=== PATIENT | male | born 1980 | race Caucasian/White ===

== ENCOUNTER 2016-10-31 15:05 | Emergency (ER) | payer MEDICAID ==
[~2016-10-31] VITALS: Ht 177.8 cm; Wt 70.3 kg
[2016-10-31 15:35] VITALS: BP 148/76
== END 2016-10-31 16:14 | disposition home or self-care (01) ==
LOC: ER 15:12
DX: M54.12 Radiculopathy, cervical region (principal); M62.838 Other muscle spasm
CPT/HCPCS: A4606; Z7610

== ENCOUNTER 2018-08-03 14:29 | Emergency (ER) | payer BC, MEDICAID ==
[~2018-08-03] VITALS: Ht 177.8 cm; Wt 68.0 kg
[2018-08-03 14:29] VITALS: BP 134/75
[2018-08-03] MEDS ORDERED: KETOROLAC TROMETHAMINE INJ 60 MG/2 ML VIAL IM ONE ×2 (15:00→15:05)
[2018-08-03] MEDS ORDERED: predniSONE 20 MG TABLET PO ONE (15:00)
[2018-08-03] MEDS ORDERED: CYCLOBENZAPRINE 10 MG TABLET PO ONE (15:00)
[2018-08-03] MEDS ORDERED: CYCLOBENZAPRINE 10 MG TABLET ONE (15:05)
[2018-08-03] MEDS ORDERED: predniSONE 20 MG TABLET ONE (15:06)
[2018-08-03] MEDS ORDERED: ONDANSETRON 4 MG TAB.RAPDIS ONE (15:13)
[2018-08-03 15:21] LABS: APPEARANCE,URINE Clear (CLEAR); BILIRUBIN,URINE Negative (NEGATIVE); BLOOD, URINE Negative Ery/uL (NEGATIVE); COLOR,URINE Yellow (YELLOW); KETONES,URINE Negative (NEGATIVE); LEUKOCYTE ESTERASE ,URINE Negative (NEGATIVE); NITRITE, URINE Negative (NEGATIVE); PROTEIN,URINE Negative (NEGATIVE); UGLUCOSE Negative (NEGATIVE); UROBILINOGEN,URINE 0.2 EU/dL (0.2)
--- NOTE | 2018-08-03 15:26 | NUR ---
PT C/O BACK PAIN WHICH IS CHRONIC X6 MONTHS BUT TODAY IT WAS SO SEVERE HE IS UNABLE TO STAND UP STRAIGHT ADN WALKING CAUSES A LOT OF PAIN. DENIES URINARY SYMPTOMS, CP, SOB. AMBULATORY STEADY GAIT DESPITE SEVERE PAIN. IN ER BED 10.
[2018-08-03] MEDS ORDERED: ONDANSETRON 4 MG TAB.RAPDIS PO ONE (15:30)
--- NOTE | 2018-08-03 16:18 | NUR ---
Patient discharged to home in stable condition. Written and verbal after care instructions given. Patient verbalizes understanding of instruction. AMBULATORY STEADY GAIT. INSTRUCTED NOT TO DRIVE
== END 2018-08-03 16:20 | disposition home or self-care (01) ==
LOC: ER 14:29
DX: M54.5 Low back pain (principal); G89.29 Other chronic pain; Z60.2 Problems related to living alone
CPT/HCPCS: 81001; 96372; 99284; A4606; J1885; J7512; Q0162; Z7610; 81000-TC